=== PATIENT | male | born 1945 | race Caucasian/White ===

== ENCOUNTER 2022-11-19 08:57 | Inpatient (IN) | payer MEDICARE, BC ==
[~2022-11-19] VITALS: Ht 172.7 cm; Wt 59.0 kg
[2022-11-19 08:00] VITALS: BP 130/70; TEMP 98.1; O2SAT 98
[~2022-11-19 08:57] MED LIST: ALPR1TAB7 PO; AMOX-430 PO; APIX5TAB PO; GABA-536 PO; MULT-594 PO; PRAV80TA21 PO; ZOLP5TAB8 PO
--- NOTE | 2022-11-19 09:00 | NUR ---
Nursing - Received patient from the Medical floor via wheel chair , alert, disoriented, in no sign of any distress . Ambulatory , needing reorientation , and redirections, anxious , pacing around cant remember where his room at. Patient thinks he's still in [place] , [place]. Encouraged participation in his group activities. Right forearm patches of ecchymosis/bruising noted . Continent of his urine, . Called his daughter Mercedes , was informed of the admission to the Unit . Patient denies S.I. no H.I. , Routine admission care done. safety reviewed, emphasized.
[2022-11-19] MEDS ORDERED: MAGNESIUM HYDROXIDE 30 ML LIQUID UDC PO PRN (09:15)
[2022-11-19] MEDS ORDERED: MAG HYDROX/AL HYDROX/SIMETH 30 ML LIQUID UDC PO PRN (09:15)
--- NOTE | 2022-11-19 11:11 | NUR ---
[facility] Initial Discharge Note: Pt currently resides at home with his located at [address] [place] [address] ). per pt's /DPOA, Christiano [phone], pt's discharge plan depends on the status of his well-being close to discharge. Christiano stated she is agreeable to a nursing facility for the pt if needed and pt may return home under her care if manageable depending on the level of care needed. [facility] will continue to work with pt, Christiano and daughter, Mercedes [phone] and to ensure a safe and proper discharge plan.
[2022-11-19] MEDS: ALPRAZOLAM 0.5 MG TABLET PO SCH ×2 (11:46→20:39)
[2022-11-19] MEDS: SERTRALINE HCL 50 MG TABLET PO SCH (13:32)
--- NOTE | 2022-11-19 16:00 | NUR ---
Gps/[employer]- Ambulates around, attended his group activity this pm, noted poor appetite, fluids adequate . Patient was able to talked to his daughter couple of times this pm .Patient noted some confusion he thinks he was still in [place]. Constant reorientation ,safety emphasized,
[2022-11-19 17:31] VITALS: BP 134/83; TEMP 98.2; O2SAT 95
[2022-11-19] MEDS: ACETAMINOPHEN 325 MG TABLET PO PRN (20:39)
[2022-11-19] MEDS: ATORVASTATIN 20 MG TABLET PO SCH (20:39)
[2022-11-19 21:58] VITALS: BP 105/90; TEMP 98; O2SAT 98
[2022-11-20] MEDS: LORAZEPAM 1 MG TABLET PO PRN (00:48)
--- NOTE | 2022-11-20 02:55 | NUR ---
Received patient in the escobar. Confused and disoriented. Orientation to the environment provided and to the situation as needed. This patient is easily redirectable, medication compliant and calm. As the night progressed, the patient became more confused , was hallucinating, anxious and talking about the [place] war. PRN medications given. Poor sleep hours so far. Safety Stratiges are in place and continuing to provide reassurance , distraction and reorientation , along with active listening.The patient denied active SI and made a verbal contract for safety with this contract technical writer for [employer].
--- NOTE | 2022-11-20 07:42 | NUR ---
GPS Nursing notes: Patient is walking around, with steady gait, denies pain or discomforts, cooperative with AM Labs. fall and safety implemented, will continue to monitor.
[2022-11-20 08:05] LABS: CREATININE 0.8 mg/dL (0.6-1.3)
[2022-11-20] MEDS: ALPRAZOLAM 0.5 MG TABLET PO SCH ×2 (08:30→20:36)
[2022-11-20] MEDS: MULTIVITAMINS,THERAPEUTIC TABLET PO SCH (08:30)
[2022-11-20 08:33] VITALS: BP 110/70; TEMP 98.1; O2SAT 99
[2022-11-20] MEDS: APIXABAN 5 MG TABLET PO SCH ×2 (08:33→16:47)
[2022-11-20] MEDS: AMOXICILLIN-CLAVUL 875-125MG TABLET PO SCH ×2 (08:34→16:47)
[2022-11-20] MEDS ORDERED: AMOXICILLIN-CLAVUL 875-125MG TABLET PO SCH (09:00)
[2022-11-20] MEDS: SERTRALINE HCL 50 MG TABLET PO SCH (12:56)
[2022-11-20 16:36] VITALS: BP 111/84; TEMP 98; O2SAT 99
[2022-11-20 20:30] VITALS: BP 105/70; TEMP 98.2; O2SAT 98
[2022-11-20] MEDS: ATORVASTATIN 20 MG TABLET PO SCH (20:36)
[2022-11-20] MEDS: ACETAMINOPHEN 325 MG TABLET PO PRN (20:36)
[2022-11-20] MEDS: ZOLPIDEM 5 MG TABLET PO PRN (22:10)
[2022-11-21 08:52] VITALS: BP 99/60; TEMP 98; O2SAT 98
[2022-11-21] MEDS: ALPRAZOLAM 0.5 MG TABLET PO SCH ×2 (09:24→20:00)
[2022-11-21] MEDS: MULTIVITAMINS,THERAPEUTIC TABLET PO SCH (09:25)
[2022-11-21] MEDS: APIXABAN 5 MG TABLET PO SCH ×2 (09:26→17:00)
[2022-11-21] MEDS: AMOXICILLIN-CLAVUL 875-125MG TABLET PO SCH ×2 (09:27→16:51)
[2022-11-21] MEDS: SERTRALINE HCL 50 MG TABLET PO SCH (12:28)
[2022-11-21 16:16] VITALS: BP 109/65; TEMP 98.1; O2SAT 98
--- NOTE | 2022-11-21 17:57 | NUR ---
Received patient is alert and oriented x3, ambulates in the unit ,denies any suicidal ideation, compliant with all medication,on antibiotic for UTI .attend in group activity ,will continue monitoring for safety.
[2022-11-21] MEDS: ACETAMINOPHEN 325 MG TABLET PO PRN (20:00)
[2022-11-21] MEDS: ATORVASTATIN 20 MG TABLET PO SCH (20:00)
[2022-11-21] MEDS: ZOLPIDEM 5 MG TABLET PO PRN (22:24)
[2022-11-21 22:37] VITALS: BP 125/58; TEMP 98.4; O2SAT 98
[2022-11-22 08:23] VITALS: BP 96/65; TEMP 98; O2SAT 99
[2022-11-22] MEDS: MULTIVITAMINS,THERAPEUTIC TABLET PO SCH (09:14)
[2022-11-22] MEDS: AMOXICILLIN-CLAVUL 875-125MG TABLET PO SCH ×2 (09:14→17:44)
[2022-11-22] MEDS: APIXABAN 5 MG TABLET PO SCH ×2 (09:14→17:45)
[2022-11-22] MEDS: ALPRAZOLAM 0.5 MG TABLET PO SCH ×2 (09:14→20:54)
[2022-11-22] MEDS: SERTRALINE HCL 50 MG TABLET PO SCH ×2 (13:48→20:55)
[2022-11-22 16:53] VITALS: BP 103/66; TEMP 98; O2SAT 98
--- NOTE | 2022-11-22 17:48 | NUR ---
GPS: Nursing Notes: Mood Disturbance: Depression: Patient is awake and responding to his name, compliant with his medications, needs prompting to participate in therapeutic groups, cooperative with nursing care, depressed mood and anxious affect, stated "I am here because I am depressed, but I do not want to hurt myself.." believes that he is getting better, unable to formulate a viable plan for self care, continue to monitor for safety, continue with treatment plan.
[2022-11-22 20:04] VITALS: BP 122/77; TEMP 98.1; O2SAT 98
[2022-11-22] MEDS: ATORVASTATIN 20 MG TABLET PO SCH (20:54)
[2022-11-22] MEDS: ZOLPIDEM 5 MG TABLET PO PRN (23:10)
[2022-11-23] MEDS: AMOXICILLIN-CLAVUL 875-125MG TABLET PO SCH ×2 (08:30→17:10)
[2022-11-23] MEDS: MULTIVITAMINS,THERAPEUTIC TABLET PO SCH (08:30)
[2022-11-23] MEDS: ALPRAZOLAM 0.5 MG TABLET PO SCH ×2 (08:30→20:14)
[2022-11-23] MEDS: APIXABAN 5 MG TABLET PO SCH ×2 (08:30→17:10)
[2022-11-23 08:46] VITALS: BP 117/68; TEMP 98; O2SAT 99
[2022-11-23] MEDS: SERTRALINE HCL 50 MG TABLET PO SCH ×2 (12:12→17:10)
--- NOTE | 2022-11-23 12:25 | NUR ---
GPS Hearing: Patient had a 5250 probable cause hearing today and it was upheld for Grave disability and Danger to self.
[2022-11-23 15:16] VITALS: BP 141/81; TEMP 98.2; O2SAT 96
--- NOTE | 2022-11-23 19:30 | NUR ---
Receive patient lying in bed. AAOx3. Calm and pleasant. Cooperative with care. Denies any SI or hallucination.
[2022-11-23 20:14] VITALS: BP 131/85; TEMP 98.2; O2SAT 98
[2022-11-23] MEDS: ATORVASTATIN 20 MG TABLET PO SCH (20:15)
[2022-11-23] MEDS: ACETAMINOPHEN 325 MG TABLET PO PRN (20:15)
[2022-11-23] MEDS: ZOLPIDEM 5 MG TABLET PO PRN (22:24)
--- NOTE | 2022-11-24 06:16 | NUR ---
Patient slept 7.0 hours.
[2022-11-24 08:07] VITALS: BP 109/80; TEMP 98; O2SAT 98
[2022-11-24] MEDS: MULTIVITAMINS,THERAPEUTIC TABLET PO SCH (11:31)
[2022-11-24] MEDS: APIXABAN 5 MG TABLET PO SCH ×2 (11:31→17:52)
[2022-11-24] MEDS: ALPRAZOLAM 0.5 MG TABLET PO SCH ×2 (11:31→20:40)
[2022-11-24] MEDS: SERTRALINE HCL 50 MG TABLET PO SCH ×2 (11:31→17:52)
[2022-11-24] MEDS: AMOXICILLIN-CLAVUL 875-125MG TABLET PO SCH ×2 (11:32→17:52)
[2022-11-24] MEDS: ACETAMINOPHEN 325 MG TABLET PO PRN (11:39)
[2022-11-24 15:39] VITALS: BP 109/62; TEMP 98; O2SAT 98
[2022-11-24 20:23] VITALS: BP 131/83; TEMP 98.2; O2SAT 95
[2022-11-24] MEDS: ATORVASTATIN 20 MG TABLET PO SCH (20:40)
[2022-11-25] MEDS: ZOLPIDEM 5 MG TABLET PO PRN (00:34)
[2022-11-25 07:30] VITALS: BP 121/74; TEMP 98; O2SAT 98
[2022-11-25] MEDS: MULTIVITAMINS,THERAPEUTIC TABLET PO SCH (09:58)
[2022-11-25] MEDS: APIXABAN 5 MG TABLET PO SCH ×2 (10:06→17:29)
[2022-11-25] MEDS: ALPRAZOLAM 0.5 MG TABLET PO SCH ×2 (10:16→20:40)
[2022-11-25] MEDS: AMOXICILLIN-CLAVUL 875-125MG TABLET PO SCH ×2 (10:17→17:26)
[2022-11-25] MEDS: SERTRALINE HCL 50 MG TABLET PO SCH (12:56)
[2022-11-25 15:56] VITALS: BP 135/78; TEMP 98; O2SAT 99
--- NOTE | 2022-11-25 16:07 | NUR ---
Nursing- Continue to be compliant with his routine medications, interacts when engaged, stayed in the dinning room during his lunch was able to talked to his family on the phone. Denies any discomfort any discomfort
[2022-11-25] MEDS: SERTRALINE HCL 100 MG TABLET PO SCH (17:26)
[2022-11-25 20:19] VITALS: BP 126/92; TEMP 98; O2SAT 99
[2022-11-25] MEDS: ATORVASTATIN 20 MG TABLET PO SCH (20:40)
[2022-11-26] MEDS: ZOLPIDEM 5 MG TABLET PO PRN ×2 (00:44→22:15)
--- NOTE | 2022-11-26 00:45 | NUR ---
Pt requested medication to help him fall asleep. Gave Ambien 5mg po prn for insomnia. Safe environment provided. Will continue to monitor.
[2022-11-26] MEDS: AMOXICILLIN-CLAVUL 875-125MG TABLET PO SCH ×2 (09:04→17:42)
[2022-11-26] MEDS: MULTIVITAMINS,THERAPEUTIC TABLET PO SCH (09:04)
[2022-11-26] MEDS: SERTRALINE HCL 50 MG TABLET PO SCH (09:04)
[2022-11-26] MEDS: ALPRAZOLAM 0.5 MG TABLET PO SCH ×2 (09:04→20:44)
[2022-11-26] MEDS: APIXABAN 5 MG TABLET PO SCH ×2 (09:11→17:42)
--- NOTE | 2022-11-26 11:00 | NUR ---
Nursing- Quiet, not interacting with his peers but able to make her simple needs known to the staff. Attended his am group tx , noted in and out of his activity, groomed self with supervision. denies any discomfort , noted pacing around from time to time, was able to talk to his family.
--- NOTE | 2022-11-26 16:12 | NUR ---
[facility] Discharge Update: [facility] contacted pt's sister, Jun [phone] and left a voicemail informing her that pt is accepted to [address] [address]) [phone] upon discharge. [facility] informed Christiano that pt is aware and agreeable of the discharge plan.
[2022-11-26] MEDS: SERTRALINE HCL 100 MG TABLET PO SCH (17:40)
[2022-11-26 20:00] VITALS: BP 114/87; TEMP 98.9; O2SAT 98
[2022-11-26] MEDS: ACETAMINOPHEN 325 MG TABLET PO PRN (20:44)
[2022-11-26] MEDS: ATORVASTATIN 20 MG TABLET PO SCH (20:45)
[2022-11-27] MEDS: MULTIVITAMINS,THERAPEUTIC TABLET PO SCH (08:54)
[2022-11-27] MEDS: SERTRALINE HCL 50 MG TABLET PO SCH (08:54)
[2022-11-27] MEDS: ALPRAZOLAM 0.5 MG TABLET PO SCH ×2 (08:54→20:15)
[2022-11-27] MEDS: APIXABAN 5 MG TABLET PO SCH ×2 (09:09→16:44)
[2022-11-27] MEDS: ACETAMINOPHEN 325 MG TABLET PO PRN ×2 (09:09→16:49)
[2022-11-27 09:36] VITALS: BP 143/88; TEMP 98.1; O2SAT 97
[2022-11-27 16:04] VITALS: BP 120/74; TEMP 98; O2SAT 98
[2022-11-27] MEDS: SERTRALINE HCL 100 MG TABLET PO SCH (16:42)
[2022-11-27] MEDS: ATORVASTATIN 20 MG TABLET PO SCH (20:16)
[2022-11-27 20:31] VITALS: BP 127/75; TEMP 98.2; O2SAT 96
[2022-11-27] MEDS: ZOLPIDEM 5 MG TABLET PO PRN (22:51)
[2022-11-28] MEDS: ACETAMINOPHEN 325 MG TABLET PO PRN ×2 (02:52→16:12)
[2022-11-28] MEDS: LORAZEPAM 1 MG TABLET PO PRN (02:52)
[2022-11-28 08:18] VITALS: BP 128/79; TEMP 98.3; O2SAT 98
[2022-11-28] MEDS: SERTRALINE HCL 50 MG TABLET PO SCH (08:40)
[2022-11-28] MEDS: ALPRAZOLAM 0.5 MG TABLET PO SCH ×2 (08:40→20:49)
[2022-11-28] MEDS: MULTIVITAMINS,THERAPEUTIC TABLET PO SCH (08:41)
[2022-11-28] MEDS: APIXABAN 5 MG TABLET PO SCH ×2 (08:41→16:13)
[2022-11-28] MEDS: SERTRALINE HCL 100 MG TABLET PO SCH (16:12)
[2022-11-28 17:05] VITALS: BP 136/85; TEMP 98.1; O2SAT 100
--- NOTE | 2022-11-28 17:39 | NUR ---
Received patient is alert and oriented x3, ambulates in the unit ,denies any suicidal ideation, compliant with all medication, .attend in group activity ,will continue monitoring for safety.
[2022-11-28 20:33] VITALS: BP 151/79; TEMP 98.6; O2SAT 98
[2022-11-28] MEDS: ATORVASTATIN 20 MG TABLET PO SCH (20:49)
[2022-11-28] MEDS: ZOLPIDEM 5 MG TABLET PO PRN (22:07)
[2022-11-29 08:05] VITALS: BP 135/77; TEMP 98.4; O2SAT 98
[2022-11-29] MEDS: ALPRAZOLAM 0.5 MG TABLET PO SCH ×2 (08:37→21:23)
[2022-11-29] MEDS: SERTRALINE HCL 50 MG TABLET PO SCH (08:37)
[2022-11-29] MEDS: ACETAMINOPHEN 325 MG TABLET PO PRN (08:37)
[2022-11-29] MEDS: MULTIVITAMINS,THERAPEUTIC TABLET PO SCH (08:38)
[2022-11-29] MEDS: APIXABAN 5 MG TABLET PO SCH ×2 (08:42→17:17)
--- NOTE | 2022-11-29 15:36 | NUR ---
[facility] Discharge Update: [facility] contacted pt's sister, Christiano [phone] and left a voicemail informing her that pt has a discharge order from the psychiatrist to continue care tomorrow at [address] [address]) [phone] via FACILITY TRANSPORTATION at 2PM. Pt is aware and agreeable. Christiano is aware and agreeable from previous conversation.
[2022-11-29 16:52] VITALS: BP 113/70; TEMP 98.9; O2SAT 98
[2022-11-29] MEDS: SERTRALINE HCL 100 MG TABLET PO SCH (17:16)
--- NOTE | 2022-11-29 18:21 | NUR ---
Received patient is alert and oriented x3, ambulates in the unit ,denies any suicidal ideation, compliant with all medication, .attend in group activity ,patient will be transfer to [facility] in AM patient is aware ,Covid test done.
[2022-11-29 20:16] VITALS: BP 125/86; TEMP 98.3; O2SAT 96
[2022-11-29] MEDS: ATORVASTATIN 20 MG TABLET PO SCH (21:23)
[2022-11-29] MEDS: ZOLPIDEM 5 MG TABLET PO PRN (22:27)
[2022-11-30] MEDS: ACETAMINOPHEN 325 MG TABLET PO PRN (03:22)
--- NOTE | 2022-11-30 07:30 | NUR ---
GPS Nursing Notes: Patient is awake, friendly on approach, bright affect, denies pain or discomforts, aware of his discharge today.
[2022-11-30 07:49] VITALS: BP 148/78; TEMP 98; O2SAT 98
[2022-11-30] MEDS: APIXABAN 5 MG TABLET PO SCH (08:21)
[2022-11-30] MEDS: MULTIVITAMINS,THERAPEUTIC TABLET PO SCH (08:22)
[2022-11-30] MEDS: ALPRAZOLAM 0.5 MG TABLET PO SCH (08:22)
[2022-11-30] MEDS: SERTRALINE HCL 50 MG TABLET PO SCH (08:22)
--- NOTE | 2022-11-30 09:50 | NUR ---
[facility] Discharge Note: Pt will be discharged to [facility] halfway [address] [address]) [phone] via FACILITY TRANSPORTATION at 11AM. [facility] spoke with admin coordinator, Magdalena at the facility who states they are ready to accept the patient today. Pt is aware and agreeable with discharge plan. [facility] left a voicemail for pts sister, Christiano [phone] regarding pts discharge details. Christiano is agreeable from previous conversation. Pt is alert and oriented x3, is unable to plan for self-care at this time. However, pt is willing to accept care at SNF. Pt denies any suicidal or homicidal ideation. Pt will follow-up at the facility with Psychiatrist, Dr. Epps and Dietary Aid, Dr. Mittal. Pt presents with calm mood and congruent affect. PHARMACY: [facility] [address] [facility] .
--- NOTE | 2022-11-30 10:34 | NUR ---
GPS Nursing notes: Patient is getting ready for discharge, no S/S of discomforts noted, V/S WNLS, no SOB, denies feeling suicidal, patient educated on discharge for today, report given to Amparo QUIÑONEZ at [facility]. Patient belongings reviewed with patient.
--- NOTE | 2022-11-30 11:58 | NUR ---
GPS Discharge nursing notes: Patient discharge at this time, patient A/O x 3, cooperative,calm, no S/S distress, discomforts, no SOB, Denies SI/HI/VH/AH, all belongings given to patient.
== END 2022-11-30 12:00 | DRG 885 ==
LOC: GPS 08:57
PROVIDERS: ADMIT Psychiatry & Neurology Psychosomatic Medicine; ATTEND Nurse Practitioner Acute Care
DX: F33.1 Major depressive disorder, recurrent, moderate (principal); K57.92 Diverticulitis of intestine, part unspecified, without perforation or abscess without bleeding; R45.851 Suicidal ideations; F41.9 Anxiety disorder, unspecified; F60.9 Personality disorder, unspecified; F29 Unspecified psychosis not due to a substance or known physiological condition; K57.90 Diverticulosis of intestine, part unspecified, without perforation or abscess without bleeding; Z20.822 Contact with and (suspected) exposure to COVID-19; M41.9 Scoliosis, unspecified
CPT/HCPCS: 36415; A6209